=== PATIENT | female | born 1955 | race Caucasian/White ===

== ENCOUNTER 2020-12-28 09:17 | Outpatient (CLI) | payer MEDICARE, OTHER | END 2020-12-28 09:18 | disposition home or self-care (01) | LOC: BICMAMMO 09:17 | PROVIDERS: ATTEND Family Medicine | DX: Z12.31 Encounter for screening mammogram for malignant neoplasm of breast (principal); M85.859 Other specified disorders of bone density and structure, unspecified thigh; N63.42 Unspecified lump in left breast, subareolar; N64.89 Other specified disorders of breast; Z91.89 Other specified personal risk factors, not elsewhere classified; Z85.54 Personal history of malignant neoplasm of ureter; Z80.3 Family history of malignant neoplasm of breast | CPT/HCPCS: 77063; 77067; 77080 ==

== ENCOUNTER 2021-02-02 09:39 | Outpatient (CLI) | payer MEDICARE | END 2021-02-02 09:40 | disposition home or self-care (01) | LOC: BICMAMMO 09:39 | PROVIDERS: ATTEND Family Medicine | DX: N64.89 Other specified disorders of breast (principal); N63.20 Unspecified lump in the left breast, unspecified quadrant | CPT/HCPCS: 76642 ×2; 77066; G0279 ==

== ENCOUNTER 2021-08-03 12:24 | Outpatient (CLI) | payer MEDICARE | END 2021-08-03 12:25 | disposition home or self-care (01) | LOC: BICRAD 12:24 | PROVIDERS: ATTEND Family Medicine | DX: S09.90XA Unspecified injury of head, initial encounter (principal); S09.93XA Unspecified injury of face, initial encounter | CPT/HCPCS: 70150; 70250 ==

== ENCOUNTER 2021-09-21 09:12 | Outpatient (CLI) | payer OTHER | END 2021-09-21 09:13 | disposition home or self-care (01) | LOC: DTY/OP 09:12 | PROVIDERS: ATTEND Internal Medicine | DX: E66.9 Obesity, unspecified (principal); Z68.30 Body mass index [BMI] 30.0-30.9, adult | CPT/HCPCS: 97802 ==

== ENCOUNTER 2022-07-06 14:46 | Outpatient (CLI) | payer MEDICARE | END 2022-07-06 14:47 | disposition home or self-care (01) | LOC: BICRAD 14:46 | PROVIDERS: ATTEND Family Medicine | DX: M25.562 Pain in left knee (principal); M17.12 Unilateral primary osteoarthritis, left knee ==

== ENCOUNTER 2022-08-07 06:59 | Outpatient (CLI) | payer MEDICARE | END 2022-08-07 07:00 | disposition home or self-care (01) | LOC: BICULT 06:59 | PROVIDERS: ATTEND Family Medicine | DX: N39.41 Urge incontinence (principal); Z98.890 Other specified postprocedural states; Z90.710 Acquired absence of both cervix and uterus | CPT/HCPCS: 76700; 76857 ==

== ENCOUNTER 2023-01-17 10:27 | Outpatient (CLI) | payer MEDICARE | END 2023-01-17 10:28 | disposition home or self-care (01) | LOC: BICMAMMO 10:27 | PROVIDERS: ATTEND Family Medicine | DX: R92.8 Other abnormal and inconclusive findings on diagnostic imaging of breast (principal) | CPT/HCPCS: 77066; G0279 ==